=== PATIENT | male | born 1985 | race Caucasian/White ===

== ENCOUNTER 2021-03-02 15:02 | Emergency (ER) | payer OTHER ==
[~2021-03-02] VITALS: Ht 182.9 cm; Wt 77.1 kg
[2021-03-02] MEDS ORDERED: KETOROLAC TROMETHAMINE INJ 30 MG/ML VIAL IM ONE (15:30)
[2021-03-02] MEDS ORDERED: KETOROLAC TROMETHAMINE 15 MG/ML VIAL ONE (15:34)
--- NOTE | 2021-03-02 15:47 | NUR ---
"Check Clerk note: manager office services consult received for homelessness. SS will follow up at a later time. SW spoke to ROBIN Vora to provide homeless resources and waiver to the patient if patient is discharged before SS consult. RESOURCES: Year-round shelters: [facility] [place] [address] [place] [address] ; [facility] [place] [address] [place] [address]; [facility] [address] [facility] [address] SPA 4 | [facility] [place] Provider: First to Serve Address: [address], [address] # of Beds: 48 Population Served: [facility] Provider: First to Serve Address: [address] [facility], [address] # of Beds: 73 Population Served: [facility] 6 | [facility] Provider: Home at Last Address: [address] [facility], [address] # of Beds: 63 Population Served: [facility] 3 | [facility] Provider: Aaliyah [place] Address: [address] [place] [address], [facility] # of Beds: 75 Population Served: [facility] 8 | [facility] Provider: Milo [place] Address: [address] [facility] [address] # of Beds: 80 Population Served: [facility] 1 | [facility] Provider: [employer] [facility] [place] Address: [address] [facility], [address] # of Beds: 85 Population Served: [facility] 2 | [facility] Provider: Marybeth cuevas [facility] Address: Confidential (please call for location) # of Beds: 52 Population Served: [facility] 4 | [facility] Provider: [facility] Address: [address] [facility], [address] # of Beds: 49 Population Served: [facility] Provider: First To Serve Address: [address] [place] [address], [facility] # of Beds: 27 Population Served: Cynthia Hygiene: [facility]: [address] [place] ; [facility] [address] [facility] [place] ; [facility] [address] [facility] [place] . Food Resources: [place] [facility] at [facility]- [address] [place]; Meet Each Need with [facility]ign[facility] ([facility]) [address] [facility] [place]; [facility] [address] [facility]; [facility] [address] [facility]. Mental Health resources provided: [facility] [address] [place], [place] [id number] ; [facility] [address] [facility] [address], [place], [place] [id number] ; [facility] [address] [address] [id number] ; [facility] [address] [place], [place] [address] Healthcare Clinics: [facility] [address] [facility], [address] [place]. [place] ; [facility] [address] [facility] [address] [place] [address]; [facility] [address] [address] [facility]. [place] [address] [phone] Counseling--Outpatient [facility] [address] [facility], [address] [place], [place] [id number] (Specializes in in-depth psychotherapy for emotional distress: anxiety, depression, interpersonal conflicts, life transitions, childhood abuse) PSYCHIATRIC OUTPATIENT SERVICES [facility] [place] [facility] Partial Hospitalization and Intensive Outpatient Program (Managed Care and [place] Only) [address] [address] [facility] [address] [facility] Partial Hospitalization and Outpatient Program [address] [address] [place], [place] [id number] [facility] Partial Hospitalization and Outpatient Program [address] [employer], [place] [id number] [facility] [address] [facility]. [address] [place] [address] [facility] Partial Hospitalization and Outpatient Program [address] [place], [place] [phone] "
--- NOTE | 2021-03-02 15:55 | NUR ---
RADIOLOGY AT BEDSIDE FOR CHEST XRAY.
[2021-03-02] MEDS ORDERED: IBUP-1957 PO (16:51)
--- NOTE | 2021-03-02 17:11 | NUR ---
Patient given written and verbal discharge instructions. Patient verbalizes understanding of instructions. Patient is ambulatory with steady gait. Refuses offer of care home placement. Patient given list of available shelters in surrounding area.
[2021-03-02 17:12] VITALS: BP 122/69
== END 2021-03-02 17:12 | disposition home or self-care (01) ==
LOC: ER 15:07
DX: R07.89 Other chest pain (principal); M94.0 Chondrocostal junction syndrome [Tietze]; F17.200 Nicotine dependence, unspecified, uncomplicated; Z88.8 Allergy status to other drugs, medicaments and biological substances; Z88.6 Allergy status to analgesic agent
CPT/HCPCS: 71045; 93005; 96372; 99283; J1885

== ENCOUNTER 2021-03-03 06:12 | Emergency (ER) | payer OTHER ==
[~2021-03-03] VITALS: Ht 185.4 cm; Wt 72.6 kg
[~2021-03-03 06:12] MED LIST: IBUP-1957 PO
[2021-03-03 06:14] VITALS: BP 113/76
== END 2021-03-03 06:28 | disposition home or self-care (01) ==
LOC: ER 06:15
DX: Z59.0 Homelessness (principal); Z88.8 Allergy status to other drugs, medicaments and biological substances